=== PATIENT | female | born 1990 | race Caucasian/White ===

== ENCOUNTER 2017-08-18 12:59 | Emergency (ER) | payer OTHER ==
[~2017-08-18] VITALS: Ht 162.6 cm; Wt 61.6 kg
[~2017-08-18 12:59] MED LIST: ENDOCET 5-3251 EACH PO; IBUPROFEN800 MG PO; MICRONOR0.35 MG PO; Motrin PO; SPRINTEC1 EACH PO; VICODIN 5-3001 EACH PO; [UNRECOGNIZED DRUG - OTHER] PO
[2017-08-18 13:32] LABS: POINT-OF-CARE METER ID UU13113778
[2017-08-18 14:16] LABS: HEMATOCRIT 32.5 % (36.0-46.0); MCH 26.1 PG (29.0-34.0); MCV 81.5 FL (83-99); MEAN PLAT.VOLUME 10.3 uM^3 (9.5-12.4); PLATELET COUNT 229 K/uL (156-360); RBC DIS.WIDTH-CV 13.7 % (11.8-14.6); RBC DIS.WIDTH-SD 40.3 % (39-53); RED BLOOD COUNT 3.99 M/uL (3.80-5.20); WHITE BLOOD COUNT 6.4 K/uL (4.1-10.2)
[2017-08-18 14:30] LABS: CHLORIDE 109 mEq/L (99-109); POTASSIUM 3.7 mEq/L (3.7-5.4); SODIUM 140 mEq/L (136-147)
[2017-08-18 14:32] LABS: GLUCOSE 92 mg/dL (70-99)
[2017-08-18 14:34] LABS: ANION GAP 11 MEQ/L (2-14)
[2017-08-18 14:36] LABS: GFR ESTIMATE (CALCULATED) > 59 mL/min/
[2017-08-18 14:37] LABS: UREA NITROGEN (BUN) 3 mg/dL (9-23)
[2017-08-18 15:03] LABS: TROP-I INTERPRETATION NEGATIVE; TROPONIN-I < 0.01 ng/mL (0.0-0.30)
[2017-08-18 15:04] LABS: QUANTITATIVE HCG 17470.5 MIU/ML
[2017-08-18 17:44] LABS: ADD MIUA? YES; BILIRUBIN NEGATIVE; BLOOD NEGATIVE; COLOR STRAW ((YELLOW)); GLUCOSE (STRIP) NEGATIVE; KETONES 5; LEUKOCYTES NEGATIVE; NITRITE NEGATIVE; PROTEIN (STRIP) NEGATIVE; SPECIFIC GRAVITY 1.005 (1.000-1.030); UROBILINOGEN 0.2 MG/DL (0.2-1.0)
[2017-08-18 17:56] LABS: BACTERIA RARE /HPF; EPITHELIAL CELLS RARE /HPF; MUCUS NONE SEEN /LPF; RED BLOOD CELLS 0-5 /HPF (0-5); UNCLASSIFIED CRYSTALS 1+ /HPF; WHITE BLOOD CELLS 0-5 /HPF (0-5)
[2017-08-18 18:13] VITALS: BP 101/63
== END 2017-08-18 18:13 | disposition home or self-care (01) ==
LOC: EME 12:59
PROVIDERS: Nurse Practitioner Family
DX: O99.353 Diseases of the nervous system complicating pregnancy, third trimester (principal); G43.909 Migraine, unspecified, not intractable, without status migrainosus; R20.2 Paresthesia of skin; Z3A.30 30 weeks gestation of pregnancy; Z87.891 Personal history of nicotine dependence
CPT/HCPCS: 70553; 80048; 81003; 82948; 84484; 84702; 85027; 99281; 99284; J7030

== ENCOUNTER 2017-10-25 21:02 | Outpatient (CLI) | payer OTHER ==
[~2017-10-25] VITALS: Ht 162.6 cm; Wt 64.9 kg
[2017-10-25 21:18] VITALS: BP 139/79
[2017-10-25] MEDS ORDERED: PRENATAL TABLE1 EAC3 PO (21:35)
== END 2017-10-26 00:10 | disposition home or self-care (01) ==
LOC: LDRP-OP 21:02 → 2WEST 21:04
DX: O47.1 False labor at or after 37 completed weeks of gestation (principal); Z3A.39 39 weeks gestation of pregnancy
CPT/HCPCS: 59025; G0378

== ENCOUNTER 2017-10-28 08:00 | Inpatient (IN) | payer OTHER ==
[2017-10-28] VITALS (26 sets, daily range): BP systolic 109–155; BP diastolic 56–81
[~2017-10-28] VITALS: Ht 162.6 cm; Wt 64.8 kg
[~2017-10-28 08:00] MED LIST changes: +PRENATAL TABLE1 EAC3 PO
[2017-10-28 09:15] LABS: EOSINOPHIL (%) 0.9 % (0-5); EOSINOPHIL COUNT 0.1 K/uL (0-0.3); IMMATURE GRANULOCYTE (%) 0.6 % (0.0-0.7); INSTRUMENT ABS NEUTROPHIL CT 4.4 K/uL; LYMPHOCYTE COUNT 1.7 K/uL (1.0-2.8); MCH 23.9 PG (29.0-34.0); MCV 77.1 FL (83-99); MEAN PLAT.VOLUME 10.5 uM^3 (9.5-12.4); MONOCYTE (%) 8.2 % (3-12); MONOCYTE COUNT 0.6 K/uL (0-0.8); NEUTROPHIL (%) 64.9 % (45-76); NEUTROPHIL COUNT 4.4 K/uL (1.8-6.4); PLATELET COUNT 286 K/uL (156-360); RBC DIS.WIDTH-CV 15.6 % (11.8-14.6); RBC DIS.WIDTH-SD 43.1 % (39-53); RED BLOOD COUNT 4.02 M/uL (3.80-5.20); WHITE BLOOD COUNT 6.7 K/uL (4.1-10.2)
[2017-10-29 00:05] VITALS: BP 118/57
[2017-10-29 00:20] VITALS: BP 117/56
[2017-10-29 00:35] VITALS: BP 123/59
[2017-10-29 01:31] VITALS: BP 124/71
[2017-10-29 02:06] VITALS: BP 106/55
[2017-10-29 06:54] LABS: EOSINOPHIL (%) 0.4 % (0-5); HEMATOCRIT 30.5 % (36.0-46.0); IMMATURE GRANULOCYTE (%) 0.5 % (0.0-0.7); IMMATURE GRANULOCYTE COUNT 0.1 K/uL; INSTRUMENT ABS NEUTROPHIL CT 7.9 K/uL; LYMPHOCYTE COUNT 1.8 K/uL (1.0-2.8); MCH 23.7 PG (29.0-34.0); MCHC 30.8 G/DL (30.0-36.0); MEAN PLAT.VOLUME 10.9 uM^3 (9.5-12.4); MONOCYTE (%) 5.5 % (3-12); MONOCYTE COUNT 0.6 K/uL (0-0.8); NEUTROPHIL (%) 75.7 % (45-76); NEUTROPHIL COUNT 7.9 K/uL (1.8-6.4); PLATELET COUNT 307 K/uL (156-360); RBC DIS.WIDTH-CV 15.6 % (11.8-14.6); RBC DIS.WIDTH-SD 43.1 % (39-53); RED BLOOD COUNT 3.96 M/uL (3.80-5.20); WHITE BLOOD COUNT 10.4 K/uL (4.1-10.2)
[2017-10-29 15:58] VITALS: BP 116/66
[2017-10-30 07:23] VITALS: BP 107/65
[2017-10-30] MEDS ORDERED: IBUPROFEN800 MG PO (10:20)
[2017-10-30] MEDS ORDERED: Tylenol Extra Streng PO (10:20)
== END 2017-10-30 12:22 | disposition home or self-care (01) | DRG 775 ==
LOC: LDRP-OP → 2WEST 08:02 → LDRP-OP 16:33 → 2WEST 23:45 → LDRP-OP 12-15 00:23
PROVIDERS: Advanced Practice Midwife
PROC: 10E0XZZ Delivery of Products of Conception, External Approach (ICD-10-PCS; principal; 2017-10-28)
PROC: 10907ZC Drainage of Amniotic Fluid, Therapeutic from Products of Conception, Via Natural or Artificial Opening (ICD-10-PCS; principal; 2017-10-28)
PROC: 00HU33Z Insertion of Infusion Device into Spinal Canal, Percutaneous Approach (ICD-10-PCS; 2017-10-28)
PROC: 3E0R3BZ Introduction of Anesthetic Agent into Spinal Canal, Percutaneous Approach (ICD-10-PCS; 2017-10-28)
PROC: 3E033VJ Introduction of Other Hormone into Peripheral Vein, Percutaneous Approach (ICD-10-PCS; 2017-10-28)
DX: O63.0 Prolonged first stage (of labor) (principal); O99.02 Anemia complicating childbirth; D50.9 Iron deficiency anemia, unspecified; Z3A.39 39 weeks gestation of pregnancy; Z37.0 Single live birth
CPT/HCPCS: 85025; C1755; J2405; J2765; J7120